=== PATIENT | male | born 1970 | race Caucasian/White ===

== ENCOUNTER 2016-12-28 23:20 | Emergency (ER) | payer OTHER | END 2016-12-29 01:44 | disposition home or self-care (01) | LOC: ERS 23:20 | DX: E11.65 Type 2 diabetes mellitus with hyperglycemia (principal); Z87.891 Personal history of nicotine dependence; Z79.4 Long term (current) use of insulin; Z79.899 Other long term (current) drug therapy | CPT/HCPCS: 36416; 99285 ==